=== PATIENT | female | born 1950 | race Caucasian/White ===

== ENCOUNTER → 2024-07-28 12:09 | Outpatient (REF) | payer MEDICARE, SELFPAY | LOC: WOUND 12:09 | PROVIDERS: ATTENDING PHYSICIAN Surgery | DX: S01.81XA Laceration without foreign body of other part of head, initial encounter (principal); I10 Essential (primary) hypertension; W19.XXXA Unspecified fall, initial encounter; Y92.002 Bathroom of unspecified non-institutional (private) residence as the place of occurrence of the external cause | CPT/HCPCS: 99203 ==

== ENCOUNTER → 2024-08-04 10:20 | Outpatient (REF) | payer MEDICARE, SELFPAY | LOC: WOUND 10:20 | PROVIDERS: ATTENDING PHYSICIAN Surgery | DX: S01.81XA Laceration without foreign body of other part of head, initial encounter (principal); I10 Essential (primary) hypertension; W19.XXXA Unspecified fall, initial encounter; Y92.002 Bathroom of unspecified non-institutional (private) residence as the place of occurrence of the external cause | CPT/HCPCS: 99213 ==

== ENCOUNTER → 2024-08-11 10:10 | Outpatient (REF) | payer MEDICARE, SELFPAY | LOC: WOUND 10:10 | PROVIDERS: ATTENDING PHYSICIAN Surgery | DX: S01.81XA Laceration without foreign body of other part of head, initial encounter (principal); I10 Essential (primary) hypertension; W19.XXXA Unspecified fall, initial encounter | CPT/HCPCS: 99212 ==